=== PATIENT | male | born 1990 | race Caucasian/White ===

== ENCOUNTER 2022-08-21 22:00 | Emergency (ER) | payer OTHER ==
[~2022-08-21] VITALS: Ht 188 cm; Wt 108.9 kg
[2022-08-21 22:08] VITALS: BP 135/80
--- NOTE | 2022-08-21 22:45 | NUR ---
XRAY DONE AT BEDSIDE.
== END 2022-08-22 02:23 | disposition home or self-care (01) ==
LOC: ER 22:02
DX: S90.851A Superficial foreign body, right foot, initial encounter (principal); W22.8XXA Striking against or struck by other objects, initial encounter; Y93.89 Activity, other specified; Y92.89 Other specified places as the place of occurrence of the external cause; Y99.8 Other external cause status
CPT/HCPCS: 73630-TC